=== PATIENT | male | born 1970 | race Caucasian/White ===

== ENCOUNTER → 2018-11-07 | Outpatient (CLI) | payer OTHER ==
[~2018-11-07] MED LIST: NORCO 5-325 TA1 EACH PO; ZOFRAN4 MG PO
== END | disposition home or self-care (01) ==
LOC: RAD 11:54
DX: J43.9 Emphysema, unspecified (principal)

== ENCOUNTER → 2019-03-21 | Outpatient (CLI) | payer OTHER ==
--- NOTE | ~2019-03-21 | EKG ---
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
[2019-03-21 15:22] LABS: BASO # 0.1 10*3/uL (0.0-0.1); BASO % 0.7 % (0.0-1.0); EOS # 0.2 10*3/uL (0.0-0.4); EOS % 1.8 % (1.0-4.0); HEMATOCRIT 44.6 % (42.0-52.0); HEMOGLOBIN 14.7 g/dl (14.0-18.0); LYMPH # 2.9 10*3/uL (1.3-4.4); LYMPH % 23.8 % (27.0-41.0); MEAN CELL VOLUME 90.3 fl (80.0-94.0); MEAN CORPUSCULAR HGB 29.8 pg (27.0-31.0); MEAN PLATELET VOLUME 9.3 fl (9.6-12.3); MONO # 0.7 10*3/uL (0.1-1.0); MONO % 5.7 % (3.0-9.0); NEUT # 8.3 10*3/uL (2.3-7.9); NEUT % 67.6 % (47.0-73.0); PLATELET COUNT AUTOMATED 367 10*3/uL (130-400); RED BLOOD COUNT 4.94 10*6/uL (4.50-5.90); RED CELL DISTRI WIDTH 14.5 % (0-14.5); WHITE BLOOD COUNT 12.3 10*3/uL (4.8-10.8)
[2019-03-21 15:50] LABS: BUN 13 mg/dl (7-24); CHLORIDE 106 mmol/L (98-107); CREATININE 1.14 mg/dL (0.70-1.30); POTASSIUM 4.2 mmol/L (3.5-5.1); SODIUM 141 mmol/L (136-145)
== END | disposition home or self-care (01) ==
LOC: LAB 13:08
PROVIDERS: Orthopaedic Surgery
DX: G56.02 Carpal tunnel syndrome, left upper limb (principal)

== ENCOUNTER → 2019-05-15 | Outpatient (CLI) | payer OTHER ==
[2019-05-15 14:03] LABS: BASO # 0.1 10*3/uL (0.0-0.1); BASO % 0.7 % (0.0-1.0); EOS # 0.3 10*3/uL (0.0-0.4); EOS % 2.5 % (1.0-4.0); HEMATOCRIT 43.7 % (42.0-52.0); HEMOGLOBIN 14.1 g/dl (14.0-18.0); LYMPH # 2.1 10*3/uL (1.3-4.4); LYMPH % 19.5 % (27.0-41.0); MEAN CELL VOLUME 92.2 fl (80.0-94.0); MEAN CORPUSCULAR HGB 29.7 pg (27.0-31.0); MEAN CORPUSCULAR HGB CONC 32.3 g/dl (33.0-37.0); MEAN PLATELET VOLUME 8.8 fl (9.6-12.3); MONO # 0.8 10*3/uL (0.1-1.0); MONO % 7.2 % (3.0-9.0); NEUT # 7.7 10*3/uL (2.3-7.9); NEUT % 69.7 % (47.0-73.0); PLATELET COUNT AUTOMATED 370 10*3/uL (130-400); RED BLOOD COUNT 4.74 10*6/uL (4.50-5.90); RED CELL DISTRI WIDTH 14.1 % (0-14.5)
[2019-05-15 14:30] LABS: BUN 11 mg/dl (7-24); CHLORIDE 106 mmol/L (98-107); CREATININE 0.94 mg/dL (0.70-1.30); POTASSIUM 3.8 mmol/L (3.5-5.1); SODIUM 142 mmol/L (136-145)
== END | disposition home or self-care (01) ==
LOC: LAB 11:48
PROVIDERS: Orthopaedic Surgery
DX: G56.01 Carpal tunnel syndrome, right upper limb (principal)

== ENCOUNTER → 2019-05-22 | Day surgery (SDC) | payer OTHER ==
[~2019-05-22] VITALS: Ht 162.5 cm; Wt 56.7 kg
[2019-05-22 06:53] VITALS: BP 109/70
[2019-05-22 08:09] VITALS: BP 107/51
[2019-05-22 08:25] VITALS: BP 104/53
[2019-05-22 08:40] VITALS: BP 105/54
== END | disposition home or self-care (01) ==
LOC: SDC 05-15 13:15
DX: G56.01 Carpal tunnel syndrome, right upper limb (principal); F17.210 Nicotine dependence, cigarettes, uncomplicated; Z98.890 Other specified postprocedural states; Z83.3 Family history of diabetes mellitus; Z82.49 Family history of ischemic heart disease and other diseases of the circulatory system; Z80.8 Family history of malignant neoplasm of other organs or systems; Z82.3 Family history of stroke

== ENCOUNTER 2021-05-05 20:35 | Inpatient (IN) | payer OTHER ==
[~2021-05-05] VITALS: Ht 170.2 cm; Wt 53.1 kg
[2021-05-05 20:47] VITALS: BP 140/83
[2021-05-05 21:28] VITALS: BP 137/82
[2021-05-05 22:05] LABS: HEMATOCRIT 42.8 % (42.0-52.0); MEAN CELL VOLUME 85.8 fl (80.0-94.0); MEAN CORPUSCULAR HGB 28.9 pg (27.0-31.0); MEAN CORPUSCULAR HGB CONC 33.6 g/dl (33.0-37.0); MEAN PLATELET VOLUME 10.5 fl (9.6-12.3); PLATELET COUNT AUTOMATED 155 10*3/uL (130-400); RED BLOOD COUNT 4.99 10*6/uL (4.50-5.90); RED CELL DISTRI WIDTH 14.6 % (0-14.5); WHITE BLOOD COUNT 15.9 10*3/uL (4.8-10.8)
[2021-05-05 22:11] LABS: INTERNATIONAL NORM RATIO 0.9 (2.0-3.5)
[2021-05-05 22:20] LABS: ALBUMIN 2.7 gm/dl (3.1-4.5); ALKALINE PHOSPHATASE 79 U/L (45-117); BUN 32 mg/dl (7-24); CHLORIDE 104 mmol/L (98-107); CREATININE 1.13 mg/dL (0.70-1.30); POTASSIUM 4.1 mmol/L (3.5-5.1); SGOT/AST 49 IU/L (3-35); SGPT/ALT 37 U/L (12-78); SODIUM 137 mmol/L (136-145); TOTAL PROTEIN 6.8 gm/dL (6.4-8.2)
[2021-05-05 22:21] LABS: TROPONIN I 0.029 ng/ml (<0.045)
[2021-05-05 22:22] LABS: TOTAL CELLS COUNTED 100 #CELLS
[2021-05-05 22:23] LABS: PLATELET SUFFICIENCY LOW (NORMAL)
[2021-05-05 22:31] LABS: CPK 1063 U/L (39-308)
[2021-05-05 22:50] LABS: BILIRUBIN 1+ (Negative); BLOOD 3+ (Negative); CLARITY Cloudy (Clear); COLOR Dark Yellow (Yellow); GLUCOSE Negative (Negative); KETONE 1+ (Negative); LEUKO ESTERASE Trace (Negative); NITRITE Negative (Negative); PH 5.5 (4.5-8.0); SPECIFIC GRAVITY >= 1.030 (1.001-1.030)
[2021-05-05 23:19] LABS: RBC 16-20 rbc/hpf (0-2); YEAST TRACE
[2021-05-05 23:21] LABS: BACTERIA 2+
[2021-05-06] VITALS (16 sets, daily range): BP systolic 83–126; BP diastolic 53–73
[2021-05-06 06:19] LABS: ALBUMIN 2.2 gm/dl (3.1-4.5); ALKALINE PHOSPHATASE 69 U/L (45-117); BUN 36 mg/dl (7-24); CHLORIDE 108 mmol/L (98-107); CPK 910 U/L (39-308); CREATININE 1.11 mg/dL (0.70-1.30); POTASSIUM 3.9 mmol/L (3.5-5.1); SGOT/AST 43 IU/L (3-35); SGPT/ALT 31 U/L (12-78); SODIUM 136 mmol/L (136-145)
[2021-05-06 06:21] LABS: ETHYL ALCOHOL < 3.0 mg/dl (<3); HEMATOCRIT 44.5 % (42.0-52.0); MEAN CELL VOLUME 88.6 fl (80.0-94.0); MEAN CORPUSCULAR HGB 28.9 pg (27.0-31.0); MEAN CORPUSCULAR HGB CONC 32.6 g/dl (33.0-37.0); PLATELET COUNT AUTOMATED 132 10*3/uL (130-400); RED BLOOD COUNT 5.02 10*6/uL (4.50-5.90); RED CELL DISTRI WIDTH 14.9 % (0-14.5)
[2021-05-06 07:25] LABS: PLATELET SUFFICIENCY NORMAL (NORMAL); TOTAL CELLS COUNTED 100 #CELLS
[2021-05-06 12:47] LABS: URINE AMPHETAMINES < 1000 (1000ng/ml); URINE BARBITURATES < 200 (200ng/ml); URINE BENZODIAZEPINES < 200 (200ng/ml); URINE CANNABINOIDS (THC) < 50 (50ng/ml); URINE COCAINE < 300 (300ng/ml); URINE METHADONE < 300 (300ng/ml); URINE OPIATES < 300 (300ng/ml)
[2021-05-06 12:48] LABS: URINE PHENCYCLIDINE < 25 (25ng/ml)
[2021-05-06] MEDS ORDERED: LUMIGAN50 DRP OPH (15:51)
[2021-05-07] VITALS: BP 132/75
[2021-05-07 06:35] LABS: HEMATOCRIT 35.7 % (42.0-52.0); MEAN CELL VOLUME 88.4 fl (80.0-94.0); MEAN CORPUSCULAR HGB 29.5 pg (27.0-31.0); MEAN CORPUSCULAR HGB CONC 33.3 g/dl (33.0-37.0); MEAN PLATELET VOLUME 11.2 fl (9.6-12.3); PLATELET COUNT AUTOMATED 100 10*3/uL (130-400); RED BLOOD COUNT 4.04 10*6/uL (4.50-5.90); RED CELL DISTRI WIDTH 14.9 % (0-14.5); WHITE BLOOD COUNT 11.2 10*3/uL (4.8-10.8)
[2021-05-07 06:49] LABS: BUN 27 mg/dl (7-24); CHLORIDE 112 mmol/L (98-107); POTASSIUM 3.7 mmol/L (3.5-5.1); SGOT/AST 59 IU/L (3-35); SODIUM 139 mmol/L (136-145)
[2021-05-07 06:50] LABS: ALKALINE PHOSPHATASE 62 U/L (45-117); CREATININE 0.88 mg/dL (0.70-1.30); SGPT/ALT 37 U/L (12-78); TOTAL PROTEIN 5.2 gm/dL (6.4-8.2)
[2021-05-07 06:52] LABS: CPK 670 U/L (39-308)
[2021-05-07 08:00] VITALS: BP 103/54
[2021-05-07 08:01] LABS: BURR CELLS MODERATE; PLATELET SUFFICIENCY LOW (NORMAL); TOTAL CELLS COUNTED 100 #CELLS
[2021-05-07 11:42] VITALS: BP 108/60
[2021-05-07 16:00] VITALS: BP 103/68
[2021-05-07 20:00] VITALS: BP 104/64
[2021-05-08] VITALS: BP 101/59
[2021-05-08 06:39] LABS: HEMATOCRIT 33.6 % (42.0-52.0); MEAN CELL VOLUME 85.7 fl (80.0-94.0); MEAN CORPUSCULAR HGB 29.1 pg (27.0-31.0); MEAN CORPUSCULAR HGB CONC 33.9 g/dl (33.0-37.0); MEAN PLATELET VOLUME 10.7 fl (9.6-12.3); PLATELET COUNT AUTOMATED 113 10*3/uL (130-400); RED BLOOD COUNT 3.92 10*6/uL (4.50-5.90); RED CELL DISTRI WIDTH 15.1 % (0-14.5)
[2021-05-08 07:17] LABS: PLATELET SUFFICIENCY LOW (NORMAL); TOTAL CELLS COUNTED 100 #CELLS
[2021-05-08 07:18] LABS: BURR CELLS MODERATE
[2021-05-08 07:20] LABS: ALBUMIN 1.9 gm/dl (3.1-4.5); ALKALINE PHOSPHATASE 71 U/L (45-117); BUN 24 mg/dl (7-24); CHLORIDE 114 mmol/L (98-107); CPK 330 U/L (39-308); CREATININE 0.74 mg/dL (0.70-1.30); POTASSIUM 3.4 mmol/L (3.5-5.1); SGOT/AST 63 IU/L (3-35); SGPT/ALT 41 U/L (12-78); SODIUM 142 mmol/L (136-145)
[2021-05-08 08:00] VITALS: BP 123/78
[2021-05-08 12:00] VITALS: BP 106/65
[2021-05-08 16:00] VITALS: BP 124/73
[2021-05-08 20:00] VITALS: BP 118/66
[2021-05-09] VITALS: BP 111/59
[2021-05-09 06:18] LABS: HEMATOCRIT 34.1 % (42.0-52.0); MEAN CELL VOLUME 85.7 fl (80.0-94.0); MEAN CORPUSCULAR HGB 28.6 pg (27.0-31.0); MEAN CORPUSCULAR HGB CONC 33.4 g/dl (33.0-37.0); MEAN PLATELET VOLUME 11.4 fl (9.6-12.3); PLATELET COUNT AUTOMATED 113 10*3/uL (130-400); RED BLOOD COUNT 3.98 10*6/uL (4.50-5.90); RED CELL DISTRI WIDTH 15.3 % (0-14.5); WHITE BLOOD COUNT 12.2 10*3/uL (4.8-10.8)
[2021-05-09 07:21] LABS: PLATELET SUFFICIENCY LOW (NORMAL); TOTAL CELLS COUNTED 100 #CELLS
[2021-05-09 08:00] VITALS: BP 119/62
[2021-05-09 12:00] VITALS: BP 121/70
[2021-05-09 16:00] VITALS: BP 112/66
[2021-05-09 20:00] VITALS: BP 132/75
[2021-05-10] VITALS: BP 143/83
[2021-05-10 01:13] LABS: BILIRUBIN Negative (Negative); BLOOD 2+ (Negative); CLARITY Clear (Clear); COLOR Yellow (Yellow); GLUCOSE Negative (Negative); KETONE Negative (Negative); LEUKO ESTERASE Negative (Negative); NITRITE Negative (Negative); PH 5.5 (4.5-8.0); SPECIFIC GRAVITY 1.025 (1.001-1.030); UROBILINOGEN 0.2 E.U./dl (0.0-1.0)
[2021-05-10 01:28] LABS: RBC 21-30 rbc/hpf (0-2); YEAST TRACE
[2021-05-10 06:38] LABS: HEMATOCRIT 33.2 % (42.0-52.0); MEAN CELL VOLUME 84.1 fl (80.0-94.0); MEAN CORPUSCULAR HGB 28.9 pg (27.0-31.0); MEAN CORPUSCULAR HGB CONC 34.3 g/dl (33.0-37.0); MEAN PLATELET VOLUME 11.2 fl (9.6-12.3); PLATELET COUNT AUTOMATED 128 10*3/uL (130-400); RED BLOOD COUNT 3.95 10*6/uL (4.50-5.90); RED CELL DISTRI WIDTH 15.5 % (0-14.5); WHITE BLOOD COUNT 10.7 10*3/uL (4.8-10.8)
[2021-05-10 06:53] LABS: ALBUMIN 1.5 gm/dl (3.1-4.5); ALKALINE PHOSPHATASE 68 U/L (45-117); BUN 18 mg/dl (7-24); CHLORIDE 110 mmol/L (98-107); CREATININE 0.68 mg/dL (0.70-1.30); FREE T4 1.56 ng/dl (0.76-1.46); POTASSIUM 3.6 mmol/L (3.5-5.1); SGOT/AST 69 IU/L (3-35); SGPT/ALT 39 U/L (12-78); SODIUM 140 mmol/L (136-145); TOTAL PROTEIN 4.5 gm/dL (6.4-8.2)
[2021-05-10 07:36] LABS: ACANTHOCYTES FEW; BURR CELLS MODERATE; PLATELET SUFFICIENCY LOW (NORMAL); TOTAL CELLS COUNTED 100 #CELLS
[2021-05-10 08:00] VITALS: BP 131/66
[2021-05-10 12:00] VITALS: BP 116/59
[2021-05-10 13:32] LABS: CSF RBC < 1000 /uL; CSF WBC 1 /uL
[2021-05-10 13:35] LABS: CSF TOTAL PROTEIN 27.3 mg/dL (15-45)
[2021-05-10 14:22] LABS: CSF LYMPHOCYTES 48 % (40-80); CSF MONOCYTES 52 % (15-45)
[2021-05-10 14:23] LABS: CLARITY CLEAR; COLOR COLORLESS
[2021-05-10 16:00] VITALS: BP 121/70
[2021-05-10 20:00] VITALS: BP 135/72
[2021-05-11] VITALS (9 sets, daily range): BP systolic 94–132; BP diastolic 41–74
[2021-05-11 12:54] LABS: BF LYMPHOCYTES 37 %; BF MONOCYTES 17 %; BF NEUTROPHILS 46 %
[2021-05-12 06:27] LABS: CHLORIDE 105 mmol/L (98-107); POTASSIUM 3.1 mmol/L (3.5-5.1); SODIUM 139 mmol/L (136-145)
[2021-05-12 06:37] LABS: ALBUMIN 1.7 gm/dl (3.1-4.5); ALKALINE PHOSPHATASE 84 U/L (45-117); BUN 10 mg/dl (7-24); CREATININE 0.53 mg/dL (0.70-1.30); SGOT/AST 136 IU/L (3-35); SGPT/ALT 79 U/L (12-78); TOTAL PROTEIN 4.6 gm/dL (6.4-8.2)
[2021-05-12 06:40] LABS: BASO % 0.4 % (0.0-1.0); EOS % 0.3 % (1.0-4.0); HEMATOCRIT 31.3 % (42.0-52.0); LYMPH # 1.2 10*3/uL (1.3-4.4); LYMPH % 10.8 % (27.0-41.0); MEAN CELL VOLUME 83.7 fl (80.0-94.0); MEAN CORPUSCULAR HGB 28.9 pg (27.0-31.0); MEAN CORPUSCULAR HGB CONC 34.5 g/dl (33.0-37.0); MEAN PLATELET VOLUME 10.8 fl (9.6-12.3); MONO # 0.7 10*3/uL (0.1-1.0); MONO % 5.9 % (3.0-9.0); NEUT # 9.1 10*3/uL (2.3-7.9); NEUT % 80.9 % (47.0-73.0); RED BLOOD COUNT 3.74 10*6/uL (4.50-5.90); WHITE BLOOD COUNT 11.2 10*3/uL (4.8-10.8)
[2021-05-12 06:44] LABS: PLATELET COUNT AUTOMATED 174 10*3/uL (130-400)
[2021-05-12 08:00] VITALS: BP 116/70
[2021-05-12 10:07] LABS: ACID FAST SPEC PROCESSING Concentration (.)
[2021-05-12] MEDS ORDERED: AMOXICILLIN500 M3 PO (11:36)
[2021-05-12] MEDS ORDERED: LEVOFLOXACIN750 M2 PO (11:36)
[2021-05-13 07:06] LABS: HSV-2 DNA Negative (Negative)
== END 2021-05-12 13:10 | disposition home health service (06) | DRG 720 ==
LOC: ED 20:35 → 4E 05-06 04:53 → EDHOLD 05-06 04:53 → 4E 05-06 14:14
PROVIDERS: Emergency Medicine; Family Medicine; Internal Medicine; Internal Medicine Critical Care Medicine; Registered Nurse; Student in an Organized Health Care Education/Training Program; ADMIT Student in an Organized Health Care Education/Training Program; ATTEND Student in an Organized Health Care Education/Training Program
PROC: 009U3ZX Drainage of Spinal Canal, Percutaneous Approach, Diagnostic (ICD-10-PCS; 2021-05-10)
PROC: 0B9J8ZX Drainage of Left Lower Lung Lobe, Via Natural or Artificial Opening Endoscopic, Diagnostic (ICD-10-PCS; principal; 2021-05-11)
PROC: 0B968ZZ Drainage of Right Lower Lobe Bronchus, Via Natural or Artificial Opening Endoscopic (ICD-10-PCS; 2021-05-11)
PROC: 0B948ZZ Drainage of Right Upper Lobe Bronchus, Via Natural or Artificial Opening Endoscopic (ICD-10-PCS; 2021-05-11)
PROC: 0B918ZZ Drainage of Trachea, Via Natural or Artificial Opening Endoscopic (ICD-10-PCS; 2021-05-11)
PROC: 0B958ZZ Drainage of Right Middle Lobe Bronchus, Via Natural or Artificial Opening Endoscopic (ICD-10-PCS; 2021-05-11)
PROC: 0B938ZZ Drainage of Right Main Bronchus, Via Natural or Artificial Opening Endoscopic (ICD-10-PCS; 2021-05-11)
PROC: 0BCB8ZZ Extirpation of Matter from Left Lower Lobe Bronchus, Via Natural or Artificial Opening Endoscopic (ICD-10-PCS; 2021-05-11)
PROC: 0BC88ZZ Extirpation of Matter from Left Upper Lobe Bronchus, Via Natural or Artificial Opening Endoscopic (ICD-10-PCS; 2021-05-11)
PROC: 0BC78ZZ Extirpation of Matter from Left Main Bronchus, Via Natural or Artificial Opening Endoscopic (ICD-10-PCS; 2021-05-11)
PROC: 0B998ZZ Drainage of Lingula Bronchus, Via Natural or Artificial Opening Endoscopic (ICD-10-PCS; 2021-05-11)
DX: A41.9 Sepsis, unspecified organism (principal); J15.6 Pneumonia due to other Gram-negative bacteria; J96.00 Acute respiratory failure, unspecified whether with hypoxia or hypercapnia; R73.9 Hyperglycemia, unspecified; G93.41 Metabolic encephalopathy; G31.84 Mild cognitive impairment of uncertain or unknown etiology; R65.20 Severe sepsis without septic shock; M62.82 Rhabdomyolysis; F39 Unspecified mood [affective] disorder; E43 Unspecified severe protein-calorie malnutrition; R19.5 Other fecal abnormalities; Z20.822 Contact with and (suspected) exposure to COVID-19; D69.6 Thrombocytopenia, unspecified; F17.210 Nicotine dependence, cigarettes, uncomplicated; K58.0 Irritable bowel syndrome with diarrhea; Z82.3 Family history of stroke; Z83.3 Family history of diabetes mellitus; Z82.49 Family history of ischemic heart disease and other diseases of the circulatory system; Z68.1 Body mass index [BMI] 19.9 or less, adult

== ENCOUNTER 2021-05-12 22:19 | Emergency (ER) | payer OTHER ==
[~2021-05-12] VITALS: Ht 1706 cm; Wt 56.7 kg
[~2021-05-12 22:19] MED LIST changes: +AMOXICILLIN500 M3 PO; +LEVOFLOXACIN750 M2 PO; +LUMIGAN50 DRP OPH
== END 2021-05-13 00:20 | disposition home or self-care (01) ==
LOC: ED 22:19
DX: A48.1 Legionnaires' disease (principal)